=== PATIENT | male | born 1995 | race Caucasian/White ===

== ENCOUNTER 2022-02-07 20:48 | Emergency (ER) | payer SELFPAY ==
--- NOTE | 2022-02-08 | NUR ---
PATIENT WAS JUST CALLED TO BE TRIAGED AT THIS TIME DUE TO ONLY TWO NURSE IN THE ER WITH WITH ALL BEDS OCCUPIED AT THIS TIME. BUT PATIENT WAS NOT PRESENT IN THE WAITING ROOM OR OUTSIDE OF ER.
--- NOTE | 2022-02-08 00:30 | NUR ---
Patient was called to be triaged but was not present in the waiting room or outside of ER. Patient was not triaged or seen by ERMD.
== END 2022-02-08 00:30 | disposition left against medical advice (07) ==
LOC: ER 20:54
DX: Z53.21 Procedure and treatment not carried out due to patient leaving prior to being seen by health care provider (principal)